=== PATIENT | male | born 1990 | race American Indian/Alaskan Native ===

== ENCOUNTER 2018-10-15 18:00 | Emergency (ER) | payer SELFPAY ==
--- NOTE | 2018-10-15 18:08 | Event Note ---
ED Screening Note Date of service: 10/15/18 Time: 18:06 ED Screening Note: This is a 28 y.o. M. that presents to the ER for sore throat since yesterday. Current smoker This initial assessment/diagnostic orders/clinical plan/treatment(s) is/are subject to change based on patients health status, clinical progression and re- assessment by fellow clinical providers in the ED. Further treatment and workup at subsequent clinical providers discretion. Patient/guardian urged not to elope from the ED as their condition may be serious if not clinically assessed and managed. Initial orders include: rapid strep
[2018-10-15 18:14] VITALS: BP 120/75
--- NOTE | 2018-10-15 18:36 | Emergency Department Report ---
ED ENT HPI - General Chief complaint: Sore Throat Stated complaint: MOUTH/TONGUE SWOLLEN Time Seen by Provider: 10/15/18 18:06 Source: patient Mode of arrival: Ambulatory Limitations: No Limitations - History of Present Illness Initial comments: This is a 28 y.o. M. that presents to the ER for sore throat since yesterday. Current smoker complaint: sore throat Onset/Timin -: days(s) Location: throat Severity scale (0 -10): 7 Quality: sharp Consistency: constant Improves with: none Worsens with: none Associated Symptoms: sore throat - Related Data Previous Rx's Medication Instructions Recorded Last Taken Type Ibuprofen [Motrin 600 MG tab] 600 mg PO Q8H #30 tablet 10/15/18 Unknown Rx Allergies Allergy/AdvReac Type Severity Reaction Status Date / Time No Known Allergies Allergy Unverified 10/15/18 18:04 ED Dental HPI - General Chief complaint: Sore Throat Stated complaint: MOUTH/TONGUE SWOLLEN Time Seen by Provider: 10/15/18 18:06 Source: patient Mode of arrival: Ambulatory Limitations: No Limitations - Related Data Previous Rx's Medication Instructions Recorded Last Taken Type Ibuprofen [Motrin 600 MG tab] 600 mg PO Q8H #30 tablet 10/15/18 Unknown Rx Allergies Allergy/AdvReac Type Severity Reaction Status Date / Time No Known Allergies Allergy Unverified 10/15/18 18:04 ED Review of Systems ROS: Stated complaint: MOUTH/TONGUE SWOLLEN Other details as noted in HPI Comment: All other systems reviewed and negative ENT: throat pain ED Past Medical Hx - Past Medical History Previous Medical History?: No - Surgical History Past Surgical History?: No - Social History Smoking Status: Current Some Day Smoker Substance Use Type: Alcohol - Medications Home Medications: Home Medications Medication Instructions Recorded Confirmed Last Taken Type Ibuprofen [Motrin 600 MG tab] 600 mg PO Q8H #30 tablet 10/15/18 Unknown Rx ED Physical Exam - General Limitations: No Limitations General appearance: alert, in no apparent distress - Head Head exam: Present: atraumatic, normocephalic - Eye Eye exam: Present: normal appearance - Expanded ENT Exam Expanded Throat exam: Positive: tonsillar erythema, tonsillomegaly. Negative: tonsillar exudate - Neck Neck exam: Present: normal inspection, full ROM ED Course Vital Signs 10/15/18 18:11 Temperature 98.2 F Pulse Rate 71 Respiratory 16 Rate Blood Pressure 120/75 O2 Sat by Pulse 100 Oximetry ED Medical Decision Making - Lab Data Laboratory Last Values Group A Strep Rapid Negative (Negative) 10/15/18 Unknown - Medical Decision Making Patient comes in for sore throat. Negative strep throat. Patient given prednisone and ibuprofen. Patient will be discharged home on ibuprofen. Critical care attestation.: If time is entered above; I have spent that time in minutes in the direct care of this critically ill patient, excluding procedure time. ED Disposition Clinical Impression: Acute tonsillitis Qualifiers: Pharyngitis/tonsillitis etiology: unspecified etiology Qualified Code(s): J03.90 - Acute tonsillitis, unspecified Disposition: DC- TO HOME OR SELFCARE Is pt being admited?: No Does the pt Need Aspirin: No Condition: Stable Instructions: Tonsillitis (ED) Additional Instructions: Take pain medication as prescribed. Prescriptions: Ibuprofen [Motrin 600 MG tab] 600 mg PO Q8H #30 tablet Referrals: [facility] [Outside] - 3-5 Days [facility] [Outside] - 3-5 Days
[2018-10-15] MEDS ORDERED: DELTASONE PO ONE (19:32)
[2018-10-15] MEDS ORDERED: IBUPROFEN PO ONE (19:33)
== END 2018-10-15 20:21 | disposition home or self-care (01) ==
LOC: ED 18:00
DX: J03.90 Acute tonsillitis, unspecified (principal); F17.200 Nicotine dependence, unspecified, uncomplicated
CPT/HCPCS: 87116; 87430; 99283; J7512

== ENCOUNTER 2020-12-11 04:13 | Emergency (ER) | payer BC, OTHER ==
[2020-12-11 04:40] VITALS: BP 125/66
--- NOTE | 2020-12-11 05:07 | Emergency Department Report ---
ED ENT HPI - General Chief complaint: Dental/Oral Stated complaint: toothache Time Seen by Provider: 12/11/20 04:51 Source: patient Mode of arrival: Ambulatory Limitations: No Limitations - History of Present Illness Initial comments: male presented department complaining of pain to the left lower molar region with symptoms of for the last few days with swelling to the same region for the last 2 days. Pain is worse with palpation and range of motion and eating. Reports no fever, chills, sweats no odynophagia or or or dysphagia. No chest pain no palpitation. No hemoptysis no hematemesis hematochezia. Reports that he did crack his tooth several months ago and has been managing it with minor flareups off and on MD complaint: tooth pain -: Gradual Severity: mild, moderate Quality: aching, dull Consistency: constant Improves with: none Worsens with: swallowing, eating Context- Dental: history of dental caries, poor dental care Associated Symptoms: toothache. denies: sore throat, tinnitus, discharge from ear, rhinorrhea - Related Data Previous Rx's Medication Instructions Recorded Last Taken Type Ibuprofen [Motrin 600 MG tab] 600 mg PO Q8H #30 tablet 10/15/18 Unknown Rx Hydrocortisone [Anucort-HC SUPPOS] 25 mg RC BID #14 supp.rect 07/13/19 Unknown Rx Amoxicillin [Amoxicillin TAB] 875 mg PO BID #20 tablet 12/11/20 Unknown Rx Chlorhexidine Mouthwash [Peridex] 15 ml MM BID #1 bottle 12/11/20 Unknown Rx Ketorolac [Toradol] 10 mg PO Q6H PRN #15 tablet 12/11/20 Unknown Rx Lidocaine Viscous 2% 5 ml MM Q3H PRN #120 udc 12/11/20 Unknown Rx Allergies Allergy/AdvReac Type Severity Reaction Status Date / Time No Known Allergies Allergy Unverified 10/15/18 18:04 ED Dental HPI - General Chief complaint: Dental/Oral Stated complaint: toothache Time Seen by Provider: 12/11/20 04:51 Source: patient Mode of arrival: Ambulatory Limitations: No Limitations - Related Data Previous Rx's Medication Instructions Recorded Last Taken Type Ibuprofen [Motrin 600 MG tab] 600 mg PO Q8H #30 tablet 10/15/18 Unknown Rx Hydrocortisone [Anucort-HC SUPPOS] 25 mg RC BID #14 supp.rect 07/13/19 Unknown Rx Amoxicillin [Amoxicillin TAB] 875 mg PO BID #20 tablet 12/11/20 Unknown Rx Chlorhexidine Mouthwash [Peridex] 15 ml MM BID #1 bottle 12/11/20 Unknown Rx Ketorolac [Toradol] 10 mg PO Q6H PRN #15 tablet 12/11/20 Unknown Rx Lidocaine Viscous 2% 5 ml MM Q3H PRN #120 udc 12/11/20 Unknown Rx Allergies Allergy/AdvReac Type Severity Reaction Status Date / Time No Known Allergies Allergy Unverified 10/15/18 18:04 ED Review of Systems ROS: Stated complaint: toothache Other details as noted in HPI Comment: All other systems reviewed and negative ED Past Medical Hx - Past Medical History Previous Medical History?: No - Surgical History Past Surgical History?: No - Social History Smoking Status: Never Smoker Substance Use Type: None - Medications Home Medications: Home Medications Medication Instructions Recorded Confirmed Last Taken Type Ibuprofen [Motrin 600 MG tab] 600 mg PO Q8H #30 tablet 10/15/18 Unknown Rx Hydrocortisone [Anucort-HC SUPPOS] 25 mg RC BID #14 supp.rect 07/13/19 Unknown Rx Amoxicillin [Amoxicillin TAB] 875 mg PO BID #20 tablet 12/11/20 Unknown Rx Chlorhexidine Mouthwash [Peridex] 15 ml MM BID #1 bottle 12/11/20 Unknown Rx Ketorolac [Toradol] 10 mg PO Q6H PRN #15 tablet 12/11/20 Unknown Rx Lidocaine Viscous 2% 5 ml MM Q3H PRN #120 udc 12/11/20 Unknown Rx ED Physical Exam - General Limitations: No Limitations General appearance: alert, in no apparent distress - Head Head exam: Present: atraumatic, normocephalic - Eye Eye exam: Present: normal appearance, PERRL, EOMI - ENT ENT exam: Present: mucous membranes moist, other (Several areas of dental erosion and and diffuse gingivitis with increased redness and swelling to the left lower molar region. Suggestive of an early abscess formation) - Neck Neck exam: Present: normal inspection - Respiratory Respiratory exam: Present: normal lung sounds bilaterally. Absent: respiratory distress - Cardiovascular Cardiovascular Exam: Present: regular rate, normal rhythm. Absent: systolic murmur, diastolic murmur, rubs, gallop - GI/Abdominal GI/Abdominal exam: Present: soft, normal bowel sounds - Rectal Rectal exam: Present: deferred - Extremities Exam Extremities exam: Present: normal inspection - Back Exam Back exam: Present: normal inspection - Neurological Exam Neurological exam: Present: alert, oriented X3 - Psychiatric Psychiatric exam: Present: normal affect, normal mood - Skin Skin exam: Present: warm, dry, intact, normal color. Absent: rash ED Course Vital Signs 12/11/20 04:31 Temperature 97.9 F Pulse Rate 64 Respiratory 16 Rate Blood Pressure 125/66 O2 Sat by Pulse 100 Oximetry ED Medical Decision Making - Medical Decision Making 30-year-old F [place] male with past medical history of poor dental care and a few day history of dental swelling erythema with no history of any compromised nontoxic appearance patient is euvolemic with no trismus no airway compromise unable to tolerate p.o. given history and examination low suspicion for this presentation being caused by peritonsillar abscess, Aldo, bacterial tracheitis, acute HIV, epiglottitis, retropharyngeal abscess. Critical care attestation.: If time is entered above; I have spent that time in minutes in the direct care of this critically ill patient, excluding procedure time. ED Disposition Clinical Impression: Infected dental caries Disposition: HOME / SELF CARE / HOMELESS Is pt being admited?: No Does the pt Need Aspirin: No Condition: Stable Instructions: Dental Abscess, [id number], Dental Extraction, Care After, [id number] Prescriptions: Amoxicillin [Amoxicillin TAB] 875 mg PO BID #20 tablet Lidocaine Viscous 2% 5 ml MM Q3H PRN #120 udc PRN Reason: Pain, Moderate (4-6) Chlorhexidine Mouthwash [Peridex] 15 ml MM BID #1 bottle Ketorolac [Toradol] 10 mg PO Q6H PRN #15 tablet PRN Reason: Pain Referrals: PRIMARY CARE, [Primary Care Provider] - 3-[address] [facility] [Provider Group] - 3-5 Days [facility] [Outside] - 3-5 Days [facility] [Outside] - 3-5 Days
== END 2020-12-11 05:21 | disposition home or self-care (01) ==
LOC: ED 04:13
DX: K02.9 Dental caries, unspecified (principal); Z79.899 Other long term (current) drug therapy
CPT/HCPCS: 99281